=== PATIENT | female | born 1995 | race Caucasian/White ===

== ENCOUNTER 2017-05-08 19:22 | Emergency (ER) | payer MEDICAID ==
[~2017-05-08] VITALS: Ht 149.9 cm; Wt 73.1 kg
[2017-05-08 19:26] VITALS: Ht 149.9 cm; Wt 73.1 kg
[2017-05-08 20:03] LABS: BASOPHIL % 0.3 % (0-2); PLATELET COUNT 247 x10^3mcL (130-400); RED CELL DISTRIBUTION WIDTH 12.5 % (11.5-14.5)
[2017-05-08 20:09] LABS: CALCIUM 8.9 mg/dL (8.5-10.1); CARBON DIOXIDE 27.6 mmol/L (21-32); CHLORIDE SERUM 107 mmol/L (98-107); CREATININE SERUM 0.4 mg/dL (0.6-1.0); GFR1 > 60 mL/min; GLUCOSE SERUM 89 mg/dL (74-106); POTASSIUM SERUM 4.1 mmol/L (3.5-5.1); SODIUM SERUM 142 mmol/L (136-145)
[2017-05-08 20:14] LABS: ALKALINE PHOSPHATASE 52 U/L (46-116); ALT/SGPT 31 U/L (14-59); AST/SGOT 20 U/L (15-37); BILIRUBIN TOTAL 0.1 mg/dL (0.20-1.00); TOTAL PROTEIN, SERUM 7.2 g/dL (6.4-8.2)
[2017-05-08 20:20] LABS: ALBUMIN 3.1 g/dL (3.4-5.0)
[2017-05-08 21:12] VITALS: BP 117/66
== END 2017-05-08 21:12 | disposition home or self-care (01) ==
LOC: ED 19:22
PROVIDERS: Emergency Medicine
DX: O26.892 Other specified pregnancy related conditions, second trimester (principal); J11.1 Influenza due to unidentified influenza virus with other respiratory manifestations; Z3A.15 15 weeks gestation of pregnancy
CPT/HCPCS: 36415; 87804; J0780

== ENCOUNTER 2018-01-28 09:22 | Emergency (ER) | payer MEDICAID ==
[~2018-01-28] VITALS: Ht 152.4 cm; Wt 81.6 kg
[2018-01-28 09:25] VITALS: BP 142/83; Ht 152.4 cm; Wt 81.6 kg
== END 2018-01-28 11:02 | disposition home or self-care (01) ==
LOC: ED 09:22
DX: L50.9 Urticaria, unspecified (principal)
CPT/HCPCS: J7512